=== PATIENT | male | born 1945 | race Caucasian/White ===

== ENCOUNTER 2020-04-09 05:48 | Day surgery (SDC) | payer OTHER | END 2020-04-09 11:01 | disposition home or self-care (01) | LOC: AMB-ENDOS 05:48 | PROVIDERS: ATTEND Surgery | DX: K62.89 Other specified diseases of anus and rectum (principal); K64.8 Other hemorrhoids; Z20.828 Contact with and (suspected) exposure to other viral communicable diseases ==